=== PATIENT | male | born 1990 | race Caucasian/White ===

== ENCOUNTER 2018-05-30 01:36 | Emergency (ER) | payer OTHER ==
[~2018-05-30] VITALS: Ht 170.2 cm; Wt 92.5 kg
[2018-05-30 01:48] VITALS: Ht 170.2 cm; Wt 92.5 kg
[2018-05-30 02:58] LABS: BASOPHIL % 0.8 % (0-2); PLATELET COUNT 329 x10^3mcL (130-400)
[2018-05-30 03:03] LABS: RED CELL DISTRIBUTION WIDTH 11.3 % (11.5-14.5)
[2018-05-30 03:04] LABS: AMPHETAMINE QUAL UR NONE DETECTED (See below)
[2018-05-30 03:12] LABS: CALCIUM 8.9 mg/dL (8.5-10.1); CARBON DIOXIDE 29.1 mmol/L (21-32); CHLORIDE SERUM 100 mmol/L (98-107); CREATININE SERUM 0.9 mg/dL (0.7-1.3); GFR1 > 60 mL/min; GLUCOSE SERUM 98 mg/dL (74-106); POTASSIUM SERUM 3.7 mmol/L (3.5-5.1); SODIUM SERUM 139 mmol/L (136-145)
[2018-05-30 03:25] VITALS: BP 140/90
== END 2018-05-30 03:25 | disposition home or self-care (01) ==
LOC: ED 01:36
PROVIDERS: Emergency Medicine
DX: G51.8 Other disorders of facial nerve (principal)
CPT/HCPCS: 36415